=== PATIENT | male | born 1970 | race Caucasian/White ===

== ENCOUNTER → 2017-05-01 | Emergency (ER) | payer BC ==
[~2017-05-01] VITALS: Ht 167.6 cm; Wt 86.2 kg
== END | disposition home or self-care (01) ==
LOC: ER 09:21
DX: J35.01 Chronic tonsillitis (principal)

== ENCOUNTER 2021-12-17 12:13 | Emergency (ER) | payer BC ==
[~2021-12-17] VITALS: Ht 182.9 cm; Wt 86.2 kg
== END 2021-12-17 13:55 | disposition home or self-care (01) ==
LOC: ER 12:13
DX: J03.90 Acute tonsillitis, unspecified (principal)